=== PATIENT | female | born 1940 | race Two or more races ===

== ENCOUNTER 2021-01-23 14:41 | Emergency (ER) | payer OTHER ==
[~2021-01-23] VITALS: Ht 160 cm; Wt 70.3 kg
[2021-01-23 15:52] VITALS: BP 132/75
[2021-01-23] MEDS ORDERED: ACETAMINOPHEN 500 MG TAB PO ONE (20:00)
[2021-01-23] MEDS ORDERED: IBUPROFEN 800 MG TAB PO ONE (20:00)
== END 2021-01-23 20:39 | disposition home or self-care (01) ==
LOC: ER 14:41
DX: S52.572A Other intraarticular fracture of lower end of left radius, initial encounter for closed fracture (principal); Z90.49 Acquired absence of other specified parts of digestive tract; Z90.710 Acquired absence of both cervix and uterus; Z88.0 Allergy status to penicillin; Z88.6 Allergy status to analgesic agent; W18.00XA Striking against unspecified object with subsequent fall, initial encounter; Y93.01 Activity, walking, marching and hiking; Y92.89 Other specified places as the place of occurrence of the external cause; Y99.8 Other external cause status
CPT/HCPCS: 29125; 73090; 73110